=== PATIENT | female | born 1980 | race Caucasian/White ===

== ENCOUNTER 2018-01-29 12:53 | Emergency (ER) | payer MEDICARE, OTHER, SELFPAY ==
[2018-01-29 13:32] VITALS: BP 117/96; PULSE 89; RESP 18; TEMP 36.8; O2SAT 98; BMI 26.9
--- NOTE | 2018-01-29 14:00 | HMH.EDUTC ---
[facility] – [place] Disposition Clinical Impression: Otitis media Qualifiers: Otitis media type: unspecified Laterality: left Qualified Code(s): H66.92 - Otitis media, unspecified, left ear Disposition: Home, Self-Care Condition on Discharge: Good Additional Instructions: * Monitor Temp. Tylenol and/or Ibuprofen as needed. ER if fever is no less than 101 despite alternating Tylenol and Ibuprofen * Encourage fluids, water, Gatorade, powerade, pedialyte if infant/toddler/or child * Warm salt water gargles for throat irritation *Warm fluids *Sore throat lozenges *Sleep elevated *humidifier or vaporizer Lots of rest Increase fluids, water, Gatorade, powerade Follow up IMMEDIATELY for new or worsening of symptoms OR no noticeable improvement over the next 48-72 hours. 911 immediately for any life threatening symptoms such as chest pain or difficulty breathing Prescriptions: Brompheniramine/Pseudoephed/Dm [Bromfed DM Cough Syrup 5mL] 10 ml PO Q4HP PRN #350 ml PRN Reason: Cough Albuterol Sulfate [Albuterol HFA Inhaler] 2 puffs IH Q6HP PRN #1 inh PRN Reason: Shortness Of Breath Or Wheezing Amoxicillin [Amoxicillin 500mg Cap] 500 mg PO TID #30 cap Forms: Work/School Release Time of Disposition: 14:17 Medical Decision Making - Medical Records Medical records reviewed: Yes: I reviewed the patient's medical records. Vital Signs: 01/29/18 13:32 Temperature 98.3 F Temperature Source Temporal Artery Scan Pulse Rate [Right Brachial] 89 Respiratory Rate 18 Blood Pressure [Right Arm] 117/96 Blood Pressure Mean [Right Arm] 103 Blood Pressure Source [Right Arm] Automatic Cuff Blood Pressure Position [Right Arm] Sitting 02 Sat by Pulse Oximetry 98 Oxygen Delivery Method Room Air - Lab Data Lab results reviewed: Yes: I reviewed the patient's lab results. - Mitchell Inquiry Pt receiving controlled substance: No Mitchell was queried for this patient: No [facility] – [place] HPI - General Stated complaint: cough fever Mode of Arrival: Family Vehicle Source of Information: Patient Limitations: No Limitations Description of Symptoms (Recalled from Triage Doc. by RN): C/P COUGH AND FEVER SINCE YESTERDAY HEENT Symptoms (Recalled from RN notes): Yes (COUGH AND FEVER) Resp Symptoms (Recalled from RN notes): Yes (COUGH) Skin Symptoms (Recalled from RN notes): No MS Symptoms (Recalled from RN notes): No Functional Status (Recalled from RN notes): N/A - History of Present Illness Provider Complaint: Patient state that she has been having cough, nasal congestion, sore throat and fever since yesterday State that she has been having bodyaches, chills and over all not feeling well States that she feels like she may have the flu - Related Data Previous Rx's Medication Instructions Recorded Albuterol Sulfate [Albuterol HFA 2 puffs IH Q6HP PRN #1 inh 01/29/18 Inhaler] Amoxicillin [Amoxicillin 500mg 500 mg PO TID #30 cap 01/29/18 Cap] Brompheniramine/Pseudoephed/Dm 10 ml PO Q4HP PRN #350 ml 01/29/18 [Bromfed DM Cough Syrup 5mL] Allergies Allergy/AdvReac Type Severity Reaction Status Date / Time No Known Allergies Allergy Verified 01/29/18 13:36 - Worker's Comp Is this a Worker's Comp case?: No [facility] History I have reviewed the patient's past medical history: Yes - Social History Smoking Status: Current every day smoker Tobacco Type: cigarettes Alcohol Intake: never - Psychiatric History Expresses thoughts of harming self/others: None Suicide Plan Description: No Plan ROS Obtained: Yes All systems reviewed & no additional complaints - Constitutional Constitutional: Reports chills, Reports fever(s) - ENT Ears, Nose, Mouth, and Throat: Reports nasal congestion, Reports sore throat Physical Exam - General General appearance: alert, in no apparent distress - Expanded ENT Exam TM/Canal exam: Right TM: erythema Nose exam: Present: other (clear drainage from nose) Comment: Throat red, irritated - R
--- NOTE | 2018-01-29 14:05 | ED_ITS ---
[facility] – [place] Disposition Clinical Impression: Otitis media Qualifiers: Otitis media type: unspecified Laterality: left Qualified Code(s): H66.92 - Otitis media, unspecified, left ear Disposition: Home, Self-Care Condition on Discharge: Good Additional Instructions: * Monitor Temp. Tylenol and/or Ibuprofen as needed. ER if fever is no less than 101 despite alternating Tylenol and Ibuprofen * Encourage fluids, water, Gatorade, powerade, pedialyte if infant/toddler/or child * Warm salt water gargles for throat irritation *Warm fluids *Sore throat lozenges *Sleep elevated *humidifier or vaporizer Lots of rest Increase fluids, water, Gatorade, powerade Follow up IMMEDIATELY for new or worsening of symptoms OR no noticeable improvement over the next 48-72 hours. 911 immediately for any life threatening symptoms such as chest pain or difficulty breathing Prescriptions: Brompheniramine/Pseudoephed/Dm [Bromfed DM Cough Syrup 5mL] 10 ml PO Q4HP PRN # 350 ml PRN Reason: Cough Albuterol Sulfate [Albuterol HFA Inhaler] 2 puffs IH Q6HP PRN #1 inh PRN Reason: Shortness Of Breath Or Wheezing Amoxicillin [Amoxicillin 500mg Cap] 500 mg PO TID #30 cap Forms: Work/School Release Time of Disposition: 14:17 Medical Decision Making - Medical Records Medical records reviewed: Yes: I reviewed the patient's medical records. Vital Signs: 01/29/18 13:32 Temperature 98.3 F Temperature Source Temporal Artery Scan Pulse Rate [Right Brachial] 89 Respiratory Rate 18 Blood Pressure [Right Arm] 117/96 Blood Pressure Mean [Right Arm] 103 Blood Pressure Source [Right Arm] Automatic Cuff Blood Pressure Position [Right Arm] Sitting 02 Sat by Pulse Oximetry 98 Oxygen Delivery Method Room Air - Lab Data Lab results reviewed: Yes: I reviewed the patient's lab results. - Mitchell Inquiry Pt receiving controlled substance: No Mitchell was queried for this patient: No [facility] [place] HPI - General Stated complaint: cough fever Mode of Arrival: Family Vehicle Source of Information: Patient Limitations: No Limitations Description of Symptoms (Recalled from Triage Doc. by RN): C/P COUGH AND FEVER SINCE YESTERDAY HEENT Symptoms (Recalled from RN notes): Yes (COUGH AND FEVER) Resp Symptoms (Recalled from RN notes): Yes (COUGH) Skin Symptoms (Recalled from RN notes): No MS Symptoms (Recalled from RN notes): No Functional Status (Recalled from RN notes): N/A - History of Present Illness Provider Complaint: Patient state that she has been having cough, nasal congestion, sore throat and fever since yesterday State that she has been having bodyaches, chills and over all not feeling well States that she feels like she may have the flu - Related Data Previous Rx's Medication Instructions Recorded Albuterol Sulfate [Albuterol HFA 2 puffs IH Q6HP PRN #1 inh 01/29/18 Inhaler] Amoxicillin [Amoxicillin 500mg 500 mg PO TID #30 cap 01/29/18 Cap] Brompheniramine/Pseudoephed/Dm 10 ml PO Q4HP PRN #350 ml 01/29/18 [Bromfed DM Cough Syrup 5mL] Allergies Allergy/AdvReac Type Severity Reaction Status Date / Time No Known Allergies Allergy Verified 01/29/18 13:36 - Worker's Comp Is this a Worker's Comp case?: No [facility] History I have reviewed the patient's past medical history: Yes - Social History Smoking Status: Current every day sm
[2018-01-29 14:28] VITALS: BP 120/86; PULSE 90; RESP 18; TEMP 36.6; O2SAT 98
[2018-01-29 15:29] LABS: UTC Influenza A Antigen Negative (Negative); UTC Influenza B Antigen Negative (Negative)
== END 2018-01-29 14:31 | disposition home or self-care (01) ==
PROVIDERS: Emergency Provider Nurse Practitioner; Family Provider Obstetrics & Gynecology
DX: H66.92 Otitis media, unspecified, left ear (principal); F17.210 Nicotine dependence, cigarettes, uncomplicated
CPT/HCPCS: G0463; 87804; 99202